=== PATIENT | male | born 1990 | race Caucasian/White ===

== ENCOUNTER 2020-05-01 03:35 | Emergency (ER) | payer OTHER ==
[~2020-05-01] VITALS: Ht 195.6 cm; Wt 104.3 kg
[2020-05-01 03:40] VITALS: BP 135/91
--- NOTE | 2020-05-01 03:45 | NUR ---
PT AMBULATED TO BED 11 WITH STEADY GAIT.
--- NOTE | 2020-05-01 03:50 | NUR ---
29 YO M BIB SELF FOR C/C OF 6/10 PENILE PAIN X1 DAY. PER PT HE HAD "ROUGH SEX" LAST NIGHT WITH A FEMALE, STATES THE CONDOM HE USED WAS "TOO TIGHT AND CUT OFF HIS CIRCULATION." DENIES DICHARGE, ITCHINESS, OR PAINFUL URINATION. PT TOOK TYLENOL AT 1700 LAST NIGHT WITHOUT RELIEF OF PAIN/SWELLING. PT GIVEN A URINAL TO PROVIDE UA. BED LOCKED AND IN LOWEST POSITION. SIDE RAILS X1.
--- NOTE | 2020-05-01 04:04 | NUR ---
ACCOMPLANIED BY TWO ADDITIONAL RNS TO INSPECT PT GENITALS. NO REDNESS OR SEVERE EDEMA VISUALIZED.
--- NOTE | 2020-05-01 04:08 | NUR ---
PT UNABLE TO PROVIDE UA AT THIS TIME. TWO CUPS OF WATER GIVEN TO ENCOURAGE VOIDING.
--- NOTE | 2020-05-01 04:16 | NUR ---
US AT BEDSIDE
--- NOTE | 2020-05-01 04:19 | NUR ---
EVELINE ODELL AT BEDSIDE
--- NOTE | 2020-05-01 04:49 | NUR ---
PT ENCOURAGED TO PROVIDE UA, PT STATES HE WILL TRY
--- NOTE | 2020-05-01 04:56 | NUR ---
UA COLLECTED AND SENT TO LAB
[2020-05-01 05:47] VITALS: BP 135/91
--- NOTE | 2020-05-01 05:47 | NUR ---
Patient discharged with v/s stable. Written and verbal after care instructions given and explained. Patient alert, oriented and verbalized understanding of instructions. with steady gait. All questions addressed prior to discharge. ID band removed. Patient advised to follow up with PMD. Rx of valacyclovir hydrochloride, tylenol with codeine, motrin given. Patient educated on indication of medication including possible reaction and side effects. Opportunity to ask questions provided and answered.
== END 2020-05-01 05:47 | disposition home or self-care (01) ==
LOC: MED 03:35
DX: A60.00 Herpesviral infection of urogenital system, unspecified (principal)
CPT/HCPCS: 36415; 76870; 99284; Q0092